=== PATIENT | female | born 1980 | race Caucasian/White ===

== ENCOUNTER → 2019-08-31 | Outpatient (CLI) | payer OTHER | END | disposition home or self-care (01) | LOC: CARD 12:25 | PROVIDERS: ATTEND Specialist | DX: R55 Syncope and collapse (principal) | CPT/HCPCS: 95816 ==

== ENCOUNTER → 2021-02-05 | Outpatient (CLI) | payer OTHER ==
[~2021-02-05] MED LIST: ALBU8.5H8 INH; CBD PO; [UNRECOGNIZED DRUG - OTHER] PO
[2021-02-05 14:11] LABS: BASOPHILS % (AUTO) 1 % (0-1); EOSINOPHILS % (AUTO) 1 % (1-7); LYMPHOCYTES % (AUTO) 29 % (22-44); MEAN CORPUSCULAR HEMOGLOBIN 31.2 pg (27.0-34.8); MEAN CORPUSCULAR HGB CONC 33.4 g/dL (32.4-35.8); MEAN PLATELET VOLUME 8.4 fL (7.4-10.4); MONOCYTES % (AUTO) 8 % (2-9); NEUTROPHILS % (AUTO) 62 % (42-75); PLATELET COUNT 294 x10^3/uL (130-400); RED BLOOD COUNT 3.91 x10^6/uL (3.82-5.3); RED CELL DISTRIBUTION WIDTH 13.1 % (9.6-15.2)
[2021-02-05 14:16] LABS: CHLORIDE 109 mmol/L (98-107)
[2021-02-05 14:29] LABS: ALANINE AMINOTRANSFERASE 17 U/L (12-78); ALBUMIN 4.1 g/dL (3.4-5.0); ALKALINE PHOSPHATASE 62 U/L (45-117); ANION GAP 5 mmol/L (5-15); BILIRUBIN,TOTAL 0.3 mg/dL (0.2-1.0); CALCIUM 8.5 mg/dL (8.5-10.1); CREATININE 0.58 mg/dL (0.55-1.02); TOTAL PROTEIN 7.6 g/dL (6.4-8.2)
[2021-02-05 14:32] LABS: MICROSCOPIC INDICATED
== END | disposition home or self-care (01) ==
LOC: STAR 12:51
PROVIDERS: ATTEND Obstetrics & Gynecology Gynecology
DX: Z01.812 Encounter for preprocedural laboratory examination (principal); R10.2 Pelvic and perineal pain; N94.6 Dysmenorrhea, unspecified; N94.10 Unspecified dyspareunia; G89.29 Other chronic pain; Z20.822 Contact with and (suspected) exposure to COVID-19
CPT/HCPCS: 36415; 80053; 81001; 84703; 85025; U0003; U0005

== ENCOUNTER 2021-02-11 11:44 | Day surgery (SDC) | payer OTHER ==
[~2021-02-11] VITALS: Ht 165.1 cm; Wt 67.0 kg
[~2021-02-11 11:44] MED LIST changes: +ACETAMINOPHEN 325 MG TABLET PO PRN; +DIAZEPAM 5 MG/ML, 2ML IVPush PRN; +DIPHENHYDRAMINE 50 MG/ML, 1ML IVPush PRN; +EPHEDRINE 50 MG/ML, 1ML IVPush PRN; +FENTANYL PF 100 MCG/2ML IV PRN; +HALOPERIDOL 5 MG/ML IV PRN; +HYDROmorphone 1 MG/ML, 1ML INJ IVPush PRN; +KETOROLAC 30 MG/1 ML IVPush PRN; +LABETALOL 5MG/ML, 20ML IV PRN; +MEPERIDINE/PF 25MG/0.5ML IVPush PRN; +METOCLOPRAMIDE 5 MG/ML, 2ML IVPush PRN; +METOPROLOL 1 MG/ML, 5ML IV PRN; +ONDANSETRON 2MG/ML, 2ML IVPush PRN; +OXYcodone 5 MG/5 ML ORAL.SOL UDC PO PRN; +PROMETHAZINE 25 MG/ML, 1ML IVPush PRN; +SILVER NITRATE STICK TP ONE; +hydrALAzine 20 MG/ML, 1ML IV PRN
[2021-02-11] MEDS ORDERED: SCOPOLAMINE 1MG PATCH TD SCH (12:00)
[2021-02-11] MEDS ORDERED: ACETAMINOPHEN 500 MG TABLET PO ONE (12:00)
[2021-02-11] MEDS ORDERED: CHLORHEXIDINE 15 ML UDC PO ONE (12:00)
[2021-02-11] MEDS ORDERED: LACTATED RINGERS 1,000 ML IV SCH (12:00)
[2021-02-11] MEDS ORDERED: DIAZEPAM 5 MG TABLET PO ONE (12:00)
[2021-02-11] MEDS ORDERED: MIDAZOLAM 1 MG/ML, 2ML ONE (12:22)
[2021-02-11] MEDS ORDERED: HYDROmorphone 1 MG/ML, 1ML INJ ONE (12:23)
[2021-02-11 12:27] LABS: HCG UR SG 1.021 (1.003-1.030)
[2021-02-11] MEDS ORDERED: FENTANYL PF 100 MCG/2ML ONE ×2 (12:30→14:46)
[2021-02-11] MEDS ORDERED: DEXAMETHASONE 4 MG/ML, 1ML ONE (12:36)
[2021-02-11] MEDS ORDERED: NEOSTIGMINE 1 MG/ML, 10ML ONE (12:36)
[2021-02-11] MEDS ORDERED: ROCURONIUM 10 MG/ML,10ML ONE (12:36)
[2021-02-11] MEDS ORDERED: PROPOFOL 10 MG/ML, 20ML ONE (12:36)
[2021-02-11] MEDS ORDERED: ONDANSETRON 2MG/ML, 2ML ONE (12:36)
[2021-02-11] MEDS ORDERED: KETOROLAC 30 MG/1 ML ONE (12:36)
[2021-02-11] MEDS ORDERED: GLYCOPYRROLATE 0.2MG/1ML, 5ML ONE (12:36)
[2021-02-11] MEDS ORDERED: OXYcodone 5 MG/5 ML ORAL.SOL UDC ONE (14:46)
== END 2021-02-11 16:07 | disposition home or self-care (01) ==
LOC: OUT 11:44
PROVIDERS: ATTEND Obstetrics & Gynecology Gynecology
DX: N94.5 Secondary dysmenorrhea (principal); N80.3 Endometriosis of pelvic peritoneum; N80.0 Endometriosis of uterus; N80.1 Endometriosis of ovary; D27.0 Benign neoplasm of right ovary; N73.6 Female pelvic peritoneal adhesions (postinfective); N94.12 Deep dyspareunia; J45.909 Unspecified asthma, uncomplicated; Z88.5 Allergy status to narcotic agent
CPT/HCPCS: 58661; 58662; 81025; 88302; 88305; J1100; J1170; J1885; J2250; J2405; J2704; J2710; J3010; J7120